=== PATIENT | female | born 2000 | race Two or more races ===

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

== ENCOUNTER 2021-12-13 01:24 | Emergency (ER) | payer OTHER ==
[~2021-12-13] VITALS: Ht 165.1 cm; Wt 57.2 kg
[2021-12-13] MEDS ORDERED: CITALOPRAM (02:03)
[2021-12-13] MEDS ORDERED: PEPCID AC20 MG PO (04:02)
== END 2021-12-13 16:43 | disposition home or self-care (01) ==
LOC: ER 01:24
DX: R10.11 Right upper quadrant pain (principal)